=== PATIENT | male | born 1975 | race Caucasian/White ===

== ENCOUNTER → 2017-02-03 | Outpatient (CLI) | payer BC ==
--- NOTE | 2017-02-03 12:22 | US ---
EXAMINATION TYPE: US abdomen complete DATE OF EXAM: 02/03/2017 9:45 AM COMPARISON: NONE CLINICAL HISTORY: R74.8 Abnormal levels of other serum enzymes. larger habitus, no complaints of pain EXAM MEASUREMENTS: Liver Length: 20.4 cm Gallbladder Wall: 0.2 cm CBD: 0.5 cm Spleen: 14.5 cm Right Kidney: 12.0 x 5.1 x 6.0 cm Left Kidney: 13.2 x 5.3 x 5.8 cm Pancreas: tail gassed out, visualized portions wnl Liver: hepatomegaly, attenuating Gallbladder: wnl Evidence for sonographic Grace's sign: no CBD: wnl Spleen: enlarged Right Kidney: wnl Left Kidney: wnl there is normal cortical medullary differentiation, no hydronephrosis bilaterally . Upper IVC: wnl Abd Aorta: wnl There is no ascites. No evident mass within the liver. IMPRESSION: Correlate for fatty infiltration of the liver, there is hepatosplenomegaly. There are vivienne e limitations to the exam.
== END | disposition home or self-care (01) ==
LOC: RADUSWWP 09:10
PROVIDERS: ATTEND Family Medicine
DX: K76.0 Fatty (change of) liver, not elsewhere classified (principal); R16.2 Hepatomegaly with splenomegaly, not elsewhere classified
CPT/HCPCS: 76700